=== PATIENT | female | born 1940 | race Caucasian/White ===

== ENCOUNTER → 2017-11-21 | Outpatient (CLI) | payer MEDICARE, BC ==
--- NOTE | 2017-11-21 15:12 | BD ---
EXAMINATION TYPE: Axial Bone Density DATE OF EXAM: 11/21/2017 COMPARISON: NONE CLINICAL HISTORY: Postmenopausal female. Osteoporosis screening. Height: 61 IN Weight: 153 LBS FRAX RISK QUESTIONS: RISK FACTORS HISTORY OF: Active: YES Postmenopausal woman: AGE 48 MEDICATIONS: Thyroid Medications: YES Which medication: Levothyroxine How Lon + YEARS Osteoporosis Medications: NOT NOW Which medication: Fosamax How Lon YEARS Additional Medications: CALCIUM, VALSARTAN, BYTOLIC, POTASSIUM CL, ATORVASTATIN,MAGNESIUM, RESTASIS, MELATONIN, EXAM MEASUREMENTS: Bone mineral densitometry was performed using the [email or web address] System. Bone mineral density as measured about the Lumbar spine is: ----- L1-L4(G/cm2): 1.321 T Score Values are as follows: ----- L2: -0.3 ----- L3: 1.2 ----- L4: 3.3 ----- L1-L4: 1.2 Bone mineral density has: Increased 8.2% since study of: 06/21/2011 Bone mineral density about the R hip (g/cm2): 0.866 Bone mineral density about the L hip (g/cm2): 0.874 T Score values are as follows: -----R Neck: -1.2 -----L Neck: -1.2 -----R Total: 0.0 -----L Total: -0.1 Bone mineral density has: Increased 1.3% since study of: 06/21/2011 IMPRESSION: Osteopenia (T Score between -2.5 and -1). There is slightly increased risk of fracture and the patient may be considered for treatment. Re-Screen 2-5 years. NOTE: T-SCORE=SD OF THE YOUNG ADULT MEAN.
--- NOTE | 2017-11-23 09:55 | MM ---
Reason for exam: screening (asymptomatic). Last mammogram was performed 3 years and 11 months ago. History: Patient is postmenopausal and had first child at age 30. Physical Findings: A clinical breast exam by your physician is recommended on an annual basis and results should be correlated with mammographic findings. MG 3D Screening Mammo W/Cad Bilateral CC and MLO view(s) were taken. Prior study comparison: December 26, 2013, bilateral MG screening mammo w CAD. December 25, 2012, bilateral digital screening mammo w/CAD. The breast tissue is heterogeneously dense. This may lower the sensitivity of mammography. No significant changes when compared with prior studies. ASSESSMENT: Negative, BI-RAD 1 RECOMMENDATION: Routine screening mammogram of both breasts in 1 year.
== END | disposition home or self-care (01) ==
LOC: RADMAMWWP 11:34
PROVIDERS: ATTEND Internal Medicine
DX: Z12.31 Encounter for screening mammogram for malignant neoplasm of breast (principal); M85.80 Other specified disorders of bone density and structure, unspecified site; Z78.0 Asymptomatic menopausal state
CPT/HCPCS: 77063; 77067; 77080

== ENCOUNTER → 2018-12-28 | Outpatient (CLI) | payer MEDICARE, BC ==
--- NOTE | 2018-12-28 15:03 | US ---
EXAMINATION TYPE: US pelvis complete transvag DATE OF EXAM: 12/28/2018 COMPARISON: NONE CLINICAL HISTORY: R22.42 R22.41 Swelling Bilateral Lower Limbs. Right side pain x February TECHNIQUE: Transvaginal (TV) and Transabdominal (TA) . Transabdominal sonographic images of the pel vis were acquired. 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 Uterus: Retroverted Heterogenous. Focal echogenic areas visualized in peripheral myometrium, lik nahed small dystrophic calcifications. 2. Endometrium: Complex fluid visualized in fundal region of endometrial canal 3. Right Ovary: Obscured by overlying bowel gas 4. Left Ovary: Obscured by overlying bowel gas 5. Bilateral Adnexa: Prominent vessels seen in left adnexa 6. Posterior cul-de-sac: no free fluid cervix- wnl as visualized IMPRESSION: 1. Complex fluid is seen within the endometrial canal. This could be on the basis of endometrial atro phy or endometrial neoplasm. Correlate with any postmenopausal bleeding. Consideration could be given to direct visualization. 2. Obscuration of the ovaries by overlying bowel gas. 3. Prominent vessels in the left adnexa suggests pelvic congestion syndrome.
== END | disposition home or self-care (01) ==
LOC: RADUSWWP 13:53
PROVIDERS: ATTEND Internal Medicine
DX: N85.8 Other specified noninflammatory disorders of uterus (principal); R10.2 Pelvic and perineal pain
CPT/HCPCS: 76830; 76856